=== PATIENT | male | born 1985 | race Hispanic/Latino ===

== ENCOUNTER 2017-03-20 10:08 | Inpatient (IN) | payer MEDICAID ==
[2017-03-19 10:44] VITALS: BMI 32.5
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
[2017-03-20] MEDS ORDERED: Bupivacaine 0.5% Inj(30mL) IJ ONE (11:16)
[2017-03-20] MEDS ORDERED: ceFAZolin 2 GM in Sodium Chloride 0.9% 100 ML IVPB ONE (11:16)
[2017-03-20] MEDS ORDERED: Lidocaine 4% MPF 5 ML IJ ONE (11:16)
--- NOTE | 2017-03-20 11:16 | CP.SDSHP ---
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, 5th digit bunion deformity - Previous Medical/Surgical History Pain: 4.Moderate Pain Previous Surgical History: tonsilectomy, R rotator cuff repair, R ACL repair - Allergies Allergies: Allergies No Known Allergies Allergy (Verified 03/20/17 10:29) - Physical Exam Vital Signs: Vital Signs 03/20/17 10:43 Temperature 98.5 F Pulse Rate 80 Respiratory 18 Rate Blood Pressure 144/85 O2 Sat by Pulse 95 Oximetry Mental Status: Alert & Oriented x3 Neuro: WNL Heart: WNL Lungs: WNL GI: WNL - {Optional Preform as Required} Integument: WNL Ortho: Other (pain to right midfoot lisfranc jt) - Impression Impression: Pt was seen and examined in SDS. Pt NPO status was confirmed. All Pre-op testing and clearance was in the chart. Pt has exhausted all conservative treatment at this time and is opting for surgical intervention. Pt was explained procedure and post-operative course. All pt's questions were answered to satisfaction. No guarantees were made. Pt understands all risks, benefits and complications of procedure. Pt will follow-up with Dr. Friedman Pt. Evaluated Today:Candidate for Anesthesia & Procedure: Yes - Date & Time Date: 03/20/17 Time: 11:16 Short Stay Discharge - Short Stay Discharge Admitting Diagnosis/Reason for Visit: S93.326A S72.3 Referrals: Kate Stewart MD [Primary Care Provider] - Instructions: Cephalexin (By mouth), Oxycodone/Acetaminophen (By mouth), RICE Therapy (GEN)
[2017-03-20] MEDS ORDERED: Bupivacaine 0.5% Inj(30mL) ONE (11:38)
[2017-03-20] MEDS ORDERED: MethylPREDNISolone Depo 40 mg/ml Inj ONE (11:38)
[2017-03-20] MEDS ORDERED: Lidocaine 1% Inj (20ml) ONE ×2 (11:38→11:39)
[2017-03-20] MEDS ORDERED: Propofol 10 mg/ml Inj (20 ML) ONE (12:20)
[2017-03-20] MEDS ORDERED: Succinylcholine 200 mg/10 ml Inj IV ONE (12:20)
[2017-03-20] MEDS ORDERED: Midazolam 2 MG/2 ML VIAL ONE (12:20)
[2017-03-20] MEDS ORDERED: Neostigmine Methylsulfate 2 MG/2 ML ML IV ONE (12:20)
[2017-03-20] MEDS ORDERED: Rocuronium 10 mg/ml (5 ml) ONE ×2 (12:24→14:26)
[2017-03-20] MEDS ORDERED: Lactated Ringer's 1,000 ML IV ONE (12:25)
[2017-03-20] MEDS ORDERED: Lactated Ringer's 1,000 ML IV SCH (14:04)
[2017-03-20] MEDS: HYDROmorphone 0.5 mg/0.5 ml ISec IVP PRN ×4 (15:49→16:30)
--- NOTE | 2017-03-20 15:51 | PCM.SURG1 ---
Surgeon's Initial Post Op Note - Surgeon's Notes Surgeon: Dr. Friedman Merchant Mariner: Dr. Trimble, Dr. Do, Dr. Herron, Dr. Hathaway Type of Anesthesia: General Endo, Local Anesthesia Administered By: Dr. 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 30mm x 2.5mm intergrag screw, 14mm x 3.5mm screw (x2) ; 20mm x 3.5mm screw, 22mm x 3.5mm screw. 2nd met: 24mm x 4.0mm cannulated , 15mm BME chapin x2 (3rd). 5th met: 12mm x 2.0mm screw, 10mm x 2.0mm screw Post-Operative Diagnosis: same Operation Performed: Right foot Lapidus, 2nd 3rd met cuneiform fusion, 5th met osteotomy Specimen/Specimens Removed: none Estimated Blood Loss: EBL {In ML}: 10 Blood Products Given: N/A Drains Used: No Drains Post-Op Condition: Good Date of Surgery/Procedure: 03/20/17 Time of Surgery/Procedure: 13:05
[2017-03-20] MEDS ORDERED: Oxycodone/Acetaminophen 5/325 mg Tab PO PRN ×3 (15:59→21:51)
[2017-03-20] MEDS ORDERED: Lactated Ringer's 500 ML IV ONE (16:45)
[2017-03-20] MEDS ORDERED: HYDROmorphone 0.5 mg/0.5 ml ISec IVP PRN (17:01)
--- NOTE | 2017-03-20 17:18 | RAD ---
PROCEDURE: Right Foot Radiographs. HISTORY: s/p right foot surgeyr COMPARISON: None. FINDINGS: BONES: Cast obscures bone detail. Postoperative changes of the 1st metatarsal cuneiform joint as well as of the 2nd and 3rd bases of the metatarsal are noted. Fixation screws are noted in the 5th metatarsal. JOINTS: Normal. SOFT TISSUES: Dorsal soft tissue swelling.. OTHER FINDINGS: None. IMPRESSION: Postoperative changes as discussed above.
[2017-03-20] MEDS ORDERED: Albuterol 0.042% Inhal Sol (1.25 mg/3 mL) UD INH STA (19:12)
[2017-03-20] MEDS ORDERED: Albuterol 0.083% Inhal Sol (2.5 mg/3 mL) UD INH STA ×2 (19:23→19:41)
[2017-03-20] MEDS ORDERED: Oxycodone/Acetaminophen 5/325 mg Tab PO ONE (19:56)
[2017-03-20 20:09] VITALS: RESP 20
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
[2017-03-20] MEDS: Oxycodone/Acetaminophen 5/325 mg Tab PO PRN (22:20)
[2017-03-21 00:56] VITALS: PULSE 104
[2017-03-21] MEDS: Oxycodone/Acetaminophen 5/325 mg Tab PO PRN (04:39)
[2017-03-21] MEDS ORDERED: HYDROmorphone 0.5 mg/0.5 ml ISec IVP PRN (05:58)
[2017-03-21 07:38] VITALS: BP 145/78; TEMP 98.3; O2SAT 95
--- NOTE | 2017-03-21 08:35 | CP.PCM.PN ---
Subjective - Date & Time of Evaluation Date of Evaluation: 03/21/17 Time of Evaluation: 08:33 - Subjective Subjective: 31 y/o male seen at bedside 1 day s/p left foot lisfranc repair and tailors bunion surgery by Dr. Friedman. Patient was admitted overnight due to pain and nausea after the surgery. Patient states that he had pain overnight between 4-6 am and had difficulty sleeping. Patient's right leg is elevated on 3 pillows and splint remains intact. Patient states that he has voided multiple times overnight but has not eaten anything since the surgery. Patient states his pain is more controlled now. Patient denies n/f/v/d/c/sob. Objective - Vital Signs/Intake and Output Vital Signs (last 24 hours): Temp Pulse Resp BP Pulse Ox 98.3 F 104 H 20 145/78 95 03/21/17 07:38 03/21/17 07:38 03/21/17 07:38 03/21/17 07:38 03/21/17 07:38 - Medications Medications: Current Medications Acetaminophen (Tylenol 325mg Tab) 650 mg PO Q6 PRN PRN Reason: Pain, Mild (1-3) Alprazolam (Xanax) 1 mg PO BID PRN PRN Reason: Anxiety Last Admin: 03/20/17 23:28 Dose: 1 mg Cephalexin Monohydrate (Keflex) 500 mg PO TID ROHAN Hydromorphone HCl (Dilaudid) 0.5 mg IVP Q15MIN PRN PRN Reason: Pain, moderate (4-7) Last Admin: 03/20/17 17:00 Dose: 0.5 mg Hydromorphone HCl (Dilaudid) 0.5 mg IVP Q3 PRN PRN Reason: Pain, severe (8-10) Lactated Ringer's (Lactated Ringer's) 1,000 mls @ 100 mls/hr IV .Q10H ROHAN Methocarbamol (Robaxin) 500 mg PO TID ROHAN Nortriptyline HCl (Pamelor) 10 mg PO DAILY ROHAN Ondansetron HCl (Zofran Inj) 4 mg IVP Q6 PRN PRN Reason: Nausea/Vomiting Last Admin: 03/20/17 21:35 Dose: 4 mg Oxycodone/Acetaminophen (Percocet 5/325 Mg Tab) 1 tab PO Q4 PRN PRN Reason: Pain, moderate (4-7) Stop: 03/23/17 21:52 Oxycodone/Acetaminophen (Percocet 5/325 Mg Tab) 2 tab PO Q6 PRN PRN Reason: Pain, severe (8-10) Stop: 03/23/17 22:01 Last Admin: 03/21/17 04:39 Dose: 2 tab Fluticasone/Salmeterol (Advair Diskus 250/50) 1 puff INH BID ROHAN - Constitutional Appears: Well, Non-toxic, No Acute Distress - Extremities Exam Additional comments: right leg posterior splint remains intact cft < 3 sec to all digits no calf tenderness or pain to palpation able to wiggle toes - Neurological Exam Neurological Exam: Alert, Awake, Oriented x3 - Psychiatric Exam Psychiatric exam: Normal Affect, Normal Mood Assessment and Plan - Assessment and Plan (Free Text) Assessment: 31 y/o male seen at bedside 1 day s/p left foot lapidus, 2nd, 3rd metatarsal cuneiform fusion, 5th metatarsal osteotomy Plan: patient seen and examined at bedside discussed in detail with attending Dr. Friedman labs and vitals reviewed; afebrile posterior splint remains c/d/i cont. ice, elevation to LLE cont. nonweightbearing with crutches to LLE patient stable for d/c instructed to cont with pain meds, abx patient to f/u as outpatient in [address] Friedman
[2017-03-21] MEDS ORDERED: Oxycodone/Acetaminophen 5/325 mg Tab PO STA ×2 (08:46→12:32)
[2017-03-21] MEDS ORDERED: Methocarbamol 500 MG Tab PO SCH (09:00)
[2017-03-21] MEDS ORDERED: Fluticasone-Salmeterol 250-50mcg Diskus INH SCH (09:00)
[2017-03-21] MEDS ORDERED: Enoxaparin 40 mg Syringe SC SCH (09:00)
--- NOTE | 2017-03-21 10:00 | CP.PCM.DIS ---
Provider - Provider Date of Admission: 03/20/17 20:04 Attending physician: Francnie Matamoros MD Primary care physician: Kate Stewart MD Time Spent in preparation of Discharge (in minutes): 30 Hospital Course - Hospital Course Hospital Course: 31 y/o male admitted s/p right foot lisfranc fx repair, 2nd 3rd met cuneiform fusion, 5th met osteotomy POD#1 for pain control and inability to urinate. Case d/w podiatry resident, patient cleared for d/c, voiding without difficulty. Rx for 10 days of lovenox given upon discharge, as well as keflex and percocet. Patient complaining of pain in right foot. Patient anxious at time of visit, anxious about lovenox administration. Notes his sister is and RN and she will administer medication. - Date & Time of H&P Date of H&P: 03/20/17 Time of H&P: 21:08 Discharge Exam - Head Exam Head Exam: NORMAL INSPECTION, NORMOCEPHALIC - Eye Exam Eye Exam: Normal appearance - ENT Exam ENT Exam: Mucous Membranes Moist - Respiratory Exam Respiratory Exam: NORMAL BREATHING PATTERN - Cardiovascular Exam Cardiovascular Exam: REGULAR RHYTHM - GI/Abdominal Exam GI & Abdominal Exam: Unremarkable - Extremities Exam Additional comments: RLE wrapped in bandages, clean and dry. - Neurological Exam Neurological exam: CN II-XII Intact, Oriented x3 - Psychiatric Exam Psychiatric exam: Anxious - Skin Skin Exam: Dry, Intact, Normal Color Discharge Plan - Discharge Medications Prescriptions: oxyCODONE/Acetaminophen [Percocet 5/325 mg Tab] 1 tab PO Q4 PRN #30 tab PRN Reason: Pain, Moderate (4-7) - Follow Up Plan Condition: GOOD Disposition: HOME/ ROUTINE Instructions: Cephalexin (By mouth), Oxycodone/Acetaminophen (By mouth), RICE Therapy (GEN) Additional Instructions: Instruction as per podiatry. PAtient to follow up with Dr. Friedman in 1 week. Referrals: Kate Stewart MD [Primary Care Provider] -
[2017-03-21] MEDS ORDERED: Enoxaparin 40 mg Syringe SC STA (11:29)
--- NOTE | 2017-03-27 08:28 | OP ---
PROCEDURE DATE: 03/20/2017 PREOPERATIVE DIAGNOSES: 1. Right foot Lisfranc fracture dislocation of 1, 2 and 3 metatarsal with posttraumatic arthritis. 2. Right foot 5th metatarsal bunionette. POSTOPERATIVE DIAGNOSES: 1. Right foot Lisfranc fracture dislocation of 1, 2 and 3 metatarsal with posttraumatic arthritis. 2. Right foot 5th metatarsal bunionette. NAME OF PROCEDURE: 1. Right foot Lisfranc repair with fusion of the 1st, 2nd and 3rd metatarsal cuneiform joints with internal fixation. 2. Right foot 5th metatarsal bunion osteotomy. SURGEON: Dr. Jon Friedman. [employer] FEEDER: Dr. Saad Do, PGY2 ANESTHESIA: IV sedation with local injection. INDICATIONS: This patient is a 31-year-old male with the above-mentioned diagnosis. The patient has exhausted all forms of conservative treatment at this time, wishes to have further surgical intervention for the conditions listed above. After careful explanation of risks, benefits and complications of the proposed procedure, patient signed a consent form. All questions and concerns were addressed at this time. Prior to taking patient to OR, n.p.o. status was verified and preoperative antibiotics were given. OPERATIVE PROCEDURE: The patient was brought to the operating room and placed on the table in supine position. Pneumatic ankle tourniquet was placed to the patient's right ankle in supramalleolar position. Folling inductin of general sedation the right foot and ankle was prepped and draped in the supramalleolar position and the procedure began. Procedure #1: Right foot Lisfranc repair with fusion of the 1st, 2nd and 3rd metatarsal cuneiform joints with internal fixation. At this time attention was directed to the dorsal medial aspect of the patients right foot where first utilizing intra operative C-Arm the position of the previous lis franc fracture and dislocation was noted. There was noted to be diminished joint space across the 1st, 2nd, and 3rd MT cuneiform joints with post traumatic arthritis noted throughout the joints. At this time, utilizing a #15 blade, a roughly 2 cm linear incision was made across the dorsomedial aspect of the right foot directly overlying the 1st MT cuneiform joint. At this time the incision was deepened utilizing soft and blunt dissection, making sure to retract all vital neurovascular structures and ligate all bleeders as necessary. At this point the MT cuneiform joint came into the operative field and a periosteal incision was made along the medial aspect of the joint. Utilizing a freer elevator and sharp dissection the periosteum was elevated from overlying the MT cuneiform joint. At this time, with use of intraop flouroscopy, a sagittal saw was placed within the 1st MT cuneiform joint and the joint was planed down. Following this roughly 1 mm of bone from both sides of the joint was resected. The at this time a temporary k wire was placed across the joint to hold positioning and [facility] was temporarily fixated across the medial aspect of the 1st met cuneiform joint. The plate was then fixated across the joint with 14mm x 3.5mm screw (x2) ; 20mm x 3.5mm screw, 22mm x 3.5mm screw locking screws and then an interfrag screw measuring 30mm x 2.5mm. At this time the plate positioning was verified with use of the C-Arm. The woudn was then flushed with copious amounts of saline and closed with 3-0, 4-0 vicryl and 5-0 monocryl in the normal fashion. At this time attention was then directed to the area overlying the base of the 2nd and 3rd MT cuneiform joint. Utilizing #15 blade a linear incision was made overlying this are and with sharp and blunt dissection was carried down to the level of the MT cuneiform joints without complication. All bleeders were ligated and neurovascular structures retracted. At this time attention was first directed to the 2nd MT cuneiform joint where following a periosteal incision the 2nd MT was reduced and utilizing a sagittal saw the joint was planed. There was noted to be mild gapping across the joint and so attention was then turned ot the 3rd MT cuneiform joint where once the joint was exposed a sagittal saw was passed across the joint space for planing. This allowed for adequate reduction of the 3rd MT cuneiform as well as allowed the 2nd MT to become aligned with the cuneiform. At this time a 24mm x 4.0mm cannulated screw and a 15mm BME staple was placed across the 2nd MT cuneiform joint. There was noted to be good compression across the joint at this time with good positioning verified with C - arm. At this time attention was then redirected back to the 3rd MT cuneiform joint where then a 15mm BME staple was placed. All screws and chapin were noted to be in good alignment and the operative site was flushed with copious amounts of sterile saline and closed with 3-0, 4-0 vicryl and 5-0 monorcyl in the normal fashion. Procedure # 2: Right 5th Metatarsal Jonh osteotomy. At this time attention was then directed to the dorsolateral aspect of the patients right foot where utilizing a #15 blade a roughly 3.5 cm long linear incision. The incision was then deepened to the level of the periosteum and capsule utilizing blunt and sharp dissection making sure to retract all vital neurovascular structures; all bleeders were ligated as needed. A periosteal and capsular linear incision was then made along the 5th MT to expose the 5th MT to the operative field. At this time, utilzing a sagittal saw, the lateral exostosis was removed and passed from the operative field w/o complication. Then a dorsal distal to plantar proximal through and throuhg cut was made starting from the dorsal distal aspect of the 5th MT. The [employer] fragment was then shifted medial and temporarily held in place with a bone clamp. Following standard AO technique 2 screws were placed across the 5th MT osteotomy measuring 12mm x 2.0mm screw, 10mm x 2.0mm screw. The incision was the flushed and closed with 3-, 4-0 vicryl and 5-0 monocryl in the normal fashion. Post op condition: Patient tolerated anesthesia and procedure well and was transferred to the PACU with vital signs stable and nuerovascular status intact ot the right foot. This patient will f/u in clinic as previously discussed with the patient. Saad Do DPM Brock Friedman DPM cc: [id number] TT: 03/27/2017 02:05:18 [email or web address] [email or web address]
== END 2017-03-21 15:44 | disposition home or self-care (01) | DRG 225 ==
LOC: H.OPSURG 10:08 → H.MEDSURG1 20:04 → H.OPSURG 21:07
PROVIDERS: ADMIT Family Medicine Geriatric Medicine; ATTEND Family Medicine Geriatric Medicine
PROC: 0QBN0ZZ Excision of Right Metatarsal, Open Approach (ICD-10-PCS; 2017-03-20)
PROC: 0SGK04Z Fusion of Right Tarsometatarsal Joint with Internal Fixation Device, Open Approach (ICD-10-PCS; principal; 2017-03-20 12:00)
DX: S93.324A Dislocation of tarsometatarsal joint of right foot, initial encounter (principal); F41.9 Anxiety disorder, unspecified; X58.XXXA Exposure to other specified factors, initial encounter; Y93.9 Activity, unspecified; Y92.9 Unspecified place or not applicable; Y99.9 Unspecified external cause status; M21.621 Bunionette of right foot; M20.61 Acquired deformities of toe(s), unspecified, right foot; M19.171 Post-traumatic osteoarthritis, right ankle and foot; J45.20 Mild intermittent asthma, uncomplicated

== ENCOUNTER 2017-05-04 15:00 | Emergency (ER) | payer MEDICAID ==
[2017-05-04 15:00] VITALS: BMI 32.5
[2017-05-04 15:07] VITALS: BP 138/71; PULSE 83; RESP 17; TEMP 98.1; O2SAT 98
--- NOTE | 2017-05-04 15:34 | ED PDOC ---
Lower Extremity Pain/Injury Time Seen by Provider: 05/04/17 15:32 Chief Complaint (Nursing): Lower Extremity Problem/Injury Chief Complaint (Provider): foot injury History Per: Patient (31 y/o male here for evaluation of foot discomfort. Has had lisfranc/bunion repair 02/2017 with subsequent cast placement. Patient is due for cast removal 12 days. States he slipped and fell on right side yesterday. Was sent by podiatry for evaluation.) Past Medical History Reviewed: Historical Data, Nursing Documentation, Vital Signs Vital Signs: Last Vital Signs Temp 98.1 F 05/04/17 15:03 Pulse 83 05/04/17 15:03 Resp 17 05/04/17 15:03 BP 138/71 05/04/17 15:03 Pulse Ox 98 05/04/17 15:03 - Medical History PMH: Anxiety, Asthma, Depression, Fractures Denies: Chronic Kidney Disease - Surgical History Surgical History: Tonsillectomy - Family History Family History: States: No Known Family Hx - Immunization History Hx Tetanus Toxoid Vaccination: Yes - Home Medications Home Medications: Ambulatory Orders Medication Instructions Recorded ALPRAZolam [Xanax] 1 mg PO BID PRN 03/20/17 Cephalexin [Keflex] 500 mg PO TID 03/20/17 Fluticasone/Salmeterol [Advair 1 mcg INH BID 03/20/17 250-50 Diskus] Methocarbamol [Robaxin] 500 mg PO TID 03/20/17 Nortriptyline [Pamelor] 10 mg PO DAILY 03/20/17 Voltarenxr 100 mg PO DAILY 03/20/17 oxyCODONE/Acetaminophen [Percocet 5 - 325 mg PO Q4 PRN 03/20/17 5/325 mg Tab] traMADol [Ultram] 50 mg PO TID 03/20/17 oxyCODONE/Acetaminophen [Percocet 1 tab PO Q4 PRN #30 tab 03/21/17 5/325 mg Tab] Naproxen [Naprosyn Tab] 375 mg PO Q8 PRN #15 tab 05/04/17 - Allergies Allergies/Adverse Reactions: Allergies Allergy/AdvReac Type Severity Reaction Status Date / Time No Known Allergies Allergy Verified 05/04/17 15:03 Review of Systems ROS Statement: Except As Marked, All Systems Reviewed And Found Negative Physical Exam - Reviewed Nursing Documentation Reviewed: Yes Vital Signs Reviewed: Yes - Physical Exam Appears: Positive for: Well, Non-toxic, No Acute Distress Head Exam: Positive for: ATRAUMATIC, NORMAL INSPECTION, NORMOCEPHALIC Skin: Positive for: Normal Color, Warm, DRY Eye Exam: Positive for: EOMI, Normal appearance, PERRL ENT: Positive for: Normal ENT Inspection Neck: Positive for: Normal, Painless ROM Cardiovascular/Chest: Positive for: Regular Rate, Rhythm Respiratory: Positive for: CNT, Normal Breath Sounds Gastrointestinal/Abdominal: Positive for: Normal Exam, Bowel Sounds, Soft Back: Positive for: Normal Inspection Extremity: Positive for: Normal ROM Neurologic/Psych: Positive for: Alert, Oriented - ECG O2 Sat by Pulse Oximetry: 98 - Progress ED Course And Treament: Podiatry resident has seen patient. Xry foot reviewed by her. Patient to f/u as scheduled. Disposition - Clinical Impression Clinical Impression: Foot pain - Patient ED Disposition Is Patient to be Admitted: No - Disposition Disposition: Routine/Home Disposition Time: 16:45 Condition: FAIR Prescriptions: Naproxen [Naprosyn Tab] 375 mg PO Q8 PRN #15 tab PRN Reason: Pain, Severe (8-10) Instructions: Foot Fracture in Adults (ED)
--- NOTE | 2017-05-04 16:02 | CP.PCM.CON ---
History of Present Illness - History of Present Illness History of Present Illness: This is a 31 yo male patient who presents to ED today with right foot pain. Of note, pt is 6 weeks s/p lisoskar and micheal deformity repair (DOS 03/20/17) with Dr. Friedman. Pt last seen in podiatry clinic this past week. Pt states that he slipped and fell on a wet floor at a restaurant yesterday, says he is concerned because he says he put some weight to the right foot and hit the side of the foot on the floor. Denies any other injuries from this fall. Says he has been completely NWB to the right foot and using the rolling walker. Says he iced the foot last night and today and took Motrin for pain. Does admit to some slight pain to the toes today and top of foot. Denies any numbness or tingling. Denies any other problems at this time. Review of Systems - Review of Systems Review of Systems: as per HPI Past Patient History - Tetanus Immunizations Tetanus Immunization: Unknown - Past Medical History & Family History Past Medical History?: Yes - Past Social History Smoking Status: Former Smoker - CARDIAC Hx Cardiac Disorders: No - PULMONARY Hx Asthma: Yes - NEUROLOGICAL Hx Neurological Disorder: Yes Other/Comment: HX OF FAINTING DURING THE DROW THE BLOOD AT TIME X1 - HEENT Hx HEENT Problems: No - RENAL Hx Chronic Kidney Disease: No - ENDOCRINE/METABOLIC Hx Endocrine Disorders: No - HEMATOLOGICAL/ONCOLOGICAL Hx Blood Disorders: No - INTEGUMENTARY Hx Dermatological Problems: No - MUSCULOSKELETAL/RHEUMATOLOGICAL Hx Fractures: Yes - GASTROINTESTINAL Hx Gastrointestinal Disorders: No - GENITOURINARY/GYNECOLOGICAL Hx Genitourinary Disorders: No - PSYCHIATRIC Hx Anxiety: Yes Hx Depression: Yes - SURGICAL HISTORY Hx Tonsillectomy: Yes - ANESTHESIA Hx Anesthesia: Yes Hx Anesthesia Reactions: No Hx Malignant Hyperthermia: No Meds Home Medications: Home Medication List Medication Instructions Recorded Confirmed Type Naproxen [Naprosyn Tab] 375 mg PO Q8 PRN #15 tab 05/04/17 Rx Allergies/Adverse Reactions: Allergies Allergy/AdvReac Type Severity Reaction Status Date / Time No Known Allergies Allergy Verified 05/04/17 15:03 Physical Exam - Constitutional Appears: Non-toxic, No Acute Distress - Extremities Exam Additional comments: Right low ext exam: Below knee cast appears c/d/i, pt able to wiggle all toes freely, cap refill < 3 sec to all digits, no ecchymosis noted to digits - Neurological Exam Neurological exam: Alert, CN II-XII Intact, Oriented x3 - Psychiatric Exam Psychiatric exam: Normal Affect, Normal Mood Results - Vital Signs Recent Vital Signs: Last Vital Signs Temp 98.1 F 05/04/17 15:03 Pulse 83 05/04/17 15:03 Resp 17 05/04/17 15:03 BP 138/71 05/04/17 15:03 Pulse Ox 98 05/04/17 15:34 Assessment & Plan - Assessment and Plan (Free Text) Assessment: 31 yo male patient 6 weeks s/p right foot lisfranc injury repair and bunionette surgery w/ pain to foot 2/2 fall Plan: Pt S&E at bedside Plan discussed with attending Dr. Friedman in detail Right foot x-rays reviewed: surgical hardware appears to be intact and in good alignment, no evidence acute fx's or dislocation Discussed findings with patient and advised pt to remain strictly NWB to right low ext. Pt is to take oral NSAIDS for pain, RICE therapy Pt is to f/u at [facility] podiatry clinic has appt 05/15/17
--- NOTE | 2017-05-04 16:06 | RAD ---
PROCEDURE: Right Foot Radiographs. HISTORY: 6 weeks s/p foot sx, recent fall COMPARISON: Right foot radiographs performed 05/01/17, 04/03/17, 03/20/17, and 02/25/17 FINDINGS: Images are obtained through a cast which obscures osseous detail. Oblique lucency/irregularity about the 5th metatarsal presumably related to recent surgical status. Postsurgical changes appear grossly stable without significant interval change appreciated. No evidence of dislocation. IMPRESSION: Oblique lucency/irregularity about the 5th metatarsal presumably related to recent surgical status. Correlate clinically. Otherwise, no significant interval change appreciated.
== END 2017-05-04 16:59 | disposition home or self-care (01) ==
LOC: H.ER 15:00
DX: M79.671 Pain in right foot (principal); F32.9 Major depressive disorder, single episode, unspecified; F41.9 Anxiety disorder, unspecified

== ENCOUNTER 2017-10-22 21:45 | Emergency (ER) | payer OTHER ==
[2017-10-22 21:45] VITALS: BMI 32.5
[2017-10-22 21:54] VITALS: BP 136/94; PULSE 74; RESP 16; TEMP 96; O2SAT 97
--- NOTE | 2017-10-22 23:03 | ED PDOC ---
Lower Extremity Pain/Injury Time Seen by Provider: 10/22/17 22:44 Chief Complaint (Nursing): Lower Extremity Problem/Injury Chief Complaint (Provider): foot injury History Per: Patient History/Exam Limitations: no limitations Additional Complaint(s): 32yo M in ED for eval of ongoing pain to right foot after lisfranc surgical and bunion repair.Pt was seen at [facility] last week was told he will need to f.u with podiatry moving forward. Pt states he now developed swelling to the right foot without acute injury. admits pain is severe.Pt believes he has chronic regional pain syndrome. Past Medical History Reviewed: Historical Data, Nursing Documentation, Vital Signs Vital Signs: Last Vital Signs Temp 96 F L 10/22/17 21:50 Pulse 74 10/22/17 21:50 Resp 16 10/22/17 21:50 BP 136/94 H 10/22/17 21:50 Pulse Ox 97 10/22/17 21:50 - Medical History PMH: Anxiety, Asthma, Depression, Fractures Denies: Chronic Kidney Disease - Surgical History Surgical History: Tonsillectomy - Family History Family History: States: No Known Family Hx - Immunization History Hx Tetanus Toxoid Vaccination: Yes - Home Medications Home Medications: Ambulatory Orders Medication Instructions Recorded ALPRAZolam [Xanax] 1 mg PO BID PRN 03/20/17 Cephalexin [Keflex] 500 mg PO TID 03/20/17 Fluticasone/Salmeterol [Advair 1 mcg INH BID 03/20/17 250-50 Diskus] Methocarbamol [Robaxin] 500 mg PO TID 03/20/17 Nortriptyline [Pamelor] 10 mg PO DAILY 03/20/17 Voltarenxr 100 mg PO DAILY 03/20/17 oxyCODONE/Acetaminophen [Percocet 5 - 325 mg PO Q4 PRN 03/20/17 5/325 mg Tab] traMADol [Ultram] 50 mg PO TID 03/20/17 oxyCODONE/Acetaminophen [Percocet 1 tab PO Q4 PRN #30 tab 03/21/17 5/325 mg Tab] Naproxen [Naprosyn Tab] 375 mg PO Q8 PRN #15 tab 05/04/17 - Allergies Allergies/Adverse Reactions: Allergies Allergy/AdvReac Type Severity Reaction Status Date / Time No Known Allergies Allergy Verified 05/04/17 15:03 Review of Systems ROS Statement: Except As Marked, All Systems Reviewed And Found Negative Constitutional: Negative for: Fever, Chills Musculoskeletal: Positive for: Foot Pain (right foot: dorsum with mild swelling no discoloration. FROM neurovasc intact. ) Physical Exam - Reviewed Nursing Documentation Reviewed: Yes Vital Signs Reviewed: Yes - Physical Exam Appears: Positive for: Well, Non-toxic, No Acute Distress Skin: Positive for: Normal Color, Warm, DRY Extremity: Positive for: Other (right foot: swelling mild noted to dorsum of foot. FROM nuerovasc intact. ) Neurologic/Psych: Positive for: Alert, Oriented - ECG O2 Sat by Pulse Oximetry: 97 Medical Decision Making Medical Decision Making: contacted podiatry, suggest pt f.u in clinic for further eval. however pt is very animate about getting further imagining. PT strongly believes something is wrong with his foot and is demanding a CT of foot states he will not leave ER unless he receives a ct scan . Disposition - Disposition Forms: [employer] ([place])
--- NOTE | 2017-10-23 00:14 | CT ---
EXAM: CT Right Lower Extremity Without Intravenous Contrast, Foot CLINICAL HISTORY: 32 years old, male; Pain; Foot; Right; Prior surgery; Surgery date: 6+ months; Surgery type: Foot surgery; Additional info: Severe foot pain with swelling and HX of lisfranc TECHNIQUE: Axial computed tomography images of the right foot without intravenous contrast. All CT scans at this facility use one or more dose reduction techniques, viz.: automated exposure control; ma/kV adjustment per patient size (including targeted exams where dose is matched to indication; i.e. head); or iterative reconstruction technique. Coronal and sagittal reformatted images were created and reviewed. COMPARISON: CR - FOOT RIGHT 3 VIEWS ROUTINE 2017-10-22 23:11 FINDINGS: Limitations: Lack of intravenous contrast. Bones/joints: No acute fracture. Plate and screw fixation of first, second, third tarsometatarsal joints; fifth metatarsal. No dislocation. No definite cortical destruction. Soft tissues: [id number] soft tissue swelling along dorsum of midfoot, lateral forefoot. IMPRESSION: 1. Soft tissue swelling, nonspecific. 2. If there is clinical concern for osteomyelitis, suggest three phase bone scan/WBC scan or MRI.
--- NOTE | 2017-10-23 00:22 | ED PDOC ---
- ECG O2 Sat by Pulse Oximetry: 97 Medical Decision Making Medical Decision Making: Pending CT. CT shows some swelling, dorsal foot. Disposition - Clinical Impression Clinical Impression: Foot pain - POA Present On Arrival: None - Disposition Disposition: Routine/Home Disposition Time: 00:21 Condition: GOOD Prescriptions: Ibuprofen [Motrin Tab] 800 mg PO Q6H PRN #20 tab PRN Reason: Pain Instructions: Swollen Joint (ED), Arthralgia (ED) Forms: [employer] (Chinese)
--- NOTE | 2017-10-23 09:07 | RAD ---
PROCEDURE: Right Foot Radiographs. HISTORY: foot injury COMPARISON: 08/07/2017 FINDINGS: BONES: Normal. No fractureNo interval fracture or interval hardware failure suggested 1st 2nd 3rd tarsal metatarsal hardware -compatible with prior Lisfranc injury treatment -renoted 2 screws transfix a old 5th metatarsal shaft fracture -no change here. . JOINTS: Normal. SOFT TISSUES: Normal. OTHER FINDINGS: None. IMPRESSION: Similar postop changes. No interval hardware failure or interval new fractures suggested
== END 2017-10-23 00:35 | disposition home or self-care (01) ==
LOC: H.ER 21:45
DX: M79.671 Pain in right foot (principal); Z86.59 Personal history of other mental and behavioral disorders; Z98.890 Other specified postprocedural states

== ENCOUNTER 2017-12-04 10:18 | Day surgery (SDC) | payer OTHER ==
[2017-12-04] MEDS ORDERED: Lactated Ringer's 1,000 ML IV ONE ×3 (12:00→17:00)
[2017-12-04] MEDS ORDERED: Bupivacaine 0.5% Inj(30mL) ONE (12:23)
[2017-12-04] MEDS ORDERED: Lidocaine 1% Inj (20ml) ONE (12:23)
--- NOTE | 2017-12-04 12:42 | CP.PCM.PN ---
Subjective - Date & Time of Evaluation Date of Evaluation: 12/04/17 Time of Evaluation: 12:39 - Subjective Subjective: 32 year old male seen in [facility] preoperatively for removal of hardware and fusion of right third tarso-metatarsal joint right foot. Patient states that he is very anxious and took two Xanax last night to calm his nerves. He states he has been NPO since before midnight. Denies any further pedal complaints. Is AAO x 3 at time of examination. Denies any recent N/V/F/C/CP/SOB/D/posterior calf pain when squeezed. Objective - Vital Signs/Intake and Output Vital Signs (last 24 hours): Temp Pulse Resp BP Pulse Ox 97.9 F 82 20 132/88 96 12/04/17 10:50 12/04/17 11:18 12/04/17 10:50 12/04/17 10:50 12/04/17 10:50 - Constitutional Appears: Well, Non-toxic, No Acute Distress - Extremities Exam Additional comments: LE focused exam: Vasc: DP/PT pulses fully palpable 2/4 b/l. Skin temperature warm to warm from proximal to distal. CFT < 3 seconds to all digits b/l. No edema noted b/l Neuro: Epicritic and protective sensation grossly intact b/l Derm: Cicatrix noted from previous ORIF of right foot. Otherwise no open lesions , wounds maceration, xerosis, abnormal pigmentation or abnormal growths notred b /l MSK: Pain with ROM of midtarsal joint, right foot - Neurological Exam Neurological Exam: Alert, Awake, Oriented x3 - Psychiatric Exam Psychiatric exam: Normal Affect, Normal Mood Assessment and Plan - Assessment and Plan (Free Text) Assessment: 32 year old male seen in [facility] preoperatively for removal of hardware and fusion of right third tarso-metatarsal joint right foot
[2017-12-04] MEDS ORDERED: ceFAZolin 1 GM in Sodium Chloride 0.9% 100 ML IVPB ONE (12:43)
[2017-12-04] MEDS ORDERED: Lidocaine 1% Inj (20ml) IJ ONE (12:43)
[2017-12-04] MEDS ORDERED: Bupivacaine 0.5% 50 ML IJ ONE ×3 (12:43→15:46)
[2017-12-04] MEDS ORDERED: Sodium Chloride 0.9% 1,000 ML IV SCH (12:45)
--- NOTE | 2017-12-04 12:48 | CP.SDSHP ---
Same Day Surgery H & P - History Proposed Procedure: Removal of hardware and fusion of third tarsometatarsal joint right foot Pre-Op Diagnosis: Painful, broken hardware of right foot - Previous Medical/Surgical History Pain: 6.Severe Pain - Allergies Allergies: Allergies No Known Allergies Allergy (Verified 05/04/17 15:03) - Physical Exam Vital Signs: Vital Signs 12/04/17 12/04/17 10:50 11:18 Temperature 97.9 F Pulse Rate 82 82 Respiratory 20 Rate Blood Pressure 132/88 O2 Sat by Pulse 96 Oximetry Mental Status: Alert & Oriented x3 - {Optional Preform as Required} Integument: WNL Ortho: Other (painful hardware right foot) - Impression Pt. Evaluated Today:Candidate for Anesthesia & Procedure: Yes - Date & Time Date: 12/04/17 Time: 12:48 Short Stay Discharge - Short Stay Discharge Admitting Diagnosis/Reason for Visit: M19.172 Disposition: HOME/ ROUTINE Referrals: Kate Stewart MD [Primary Care Provider] -
[2017-12-04] MEDS ORDERED: Propofol 10 mg/ml Inj (20 ML) ONE ×2 (13:11→15:46)
[2017-12-04] MEDS ORDERED: Midazolam 2 MG/2 ML VIAL ONE ×2 (13:12→13:25)
[2017-12-04] MEDS ORDERED: Succinylcholine 200 mg/10 ml Inj IV ONE (13:14)
[2017-12-04] MEDS ORDERED: Ropivacaine 0.5% 30ML IV ONE (13:27)
[2017-12-04] MEDS ORDERED: Midazolam 2 MG/2 ML VIAL IVP PRN (16:09)
[2017-12-04] MEDS ORDERED: Lactated Ringer's 1,000 ML IV SCH (16:15)
--- NOTE | 2017-12-04 16:25 | PCM.SURG1 ---
Surgeon's Initial Post Op Note - Surgeon's Notes Surgeon: Dr. Jon Friedman, DPM Spout Tender: Clint Johnston PGY3, Libia Richard PGY2 Type of Anesthesia: General LMA, Local Anesthesia Administered By: Dr. 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 M- plates and screws. I- 10 cc 0.5% marcaine plain Post-Operative Diagnosis: Same Operation Performed: Removal of painful hardware right foot. Fusion of third tarsometatarsal joints right foot Specimen/Specimens Removed: Bone right foot Estimated Blood Loss: EBL {In ML}: 5 Blood Products Given: N/A Drains Used: No Drains Post-Op Condition: Good Date of Surgery/Procedure: 12/04/17 Time of Surgery/Procedure: 16:26
[2017-12-04] MEDS ORDERED: Oxycodone/Acetaminophen 5/325 mg Tab PO PRN ×2 (16:27)
--- NOTE | 2017-12-04 17:02 | PCM.ANESB2 ---
Popliteal Nerve Block - Popliteal Nerve Block Date of Procedure: 12/04/17 Anesthesiologist: Trever Pre-Procedure Diagnosis: Right foot painful hardware Post-Procedure Diagnosis: Same Procedure Performed: Popliteal Nerve Block Right - Procedure Popliteal Nerve Block: This procedure was explained to the patient that it is for post-operative pain management. Consent was obtained after a thorough discussion with the patient regarding the benefits and possible complications of local anesthetic block of the sciatic nerve at the popliteal level. The patient was brought to the operating room and standard monitors are applied. Time-out was held with the circulating nurse to confirm the correct surgery and the appropriate block. After applying oxygen by nasal cannula and administering IV Sedation, patient's operative leg was gently raised and supported and the groove in between the biceps femoris and vastus lateralis muscles was carefully palpated. The skin approximately 8cm above the popliteal crease was then marked. The ultrasound transducer was then applied to the posterior thigh approximately 8cm above the popliteal crease in the transverse plane and the sciatic nerve before its division was visualized lateral to the popliteal artery and in between the bicep femoris and semimembranosus/semitendinosus muscles. After identification, the lateral portion of the thigh was prepped with Betadine solution three times and Lidocaine 1% was injected subcutaneously for topical anesthesia. At this point, a # 21 gauge Stimuplex insulated 4 inch needle was inserted into pre-marked area and advanced in a perpendicular direction. The needle was inserted above the ultrasound transducer in-plane towards the sciatic nerve in a [id number] direction. Needle advancement was performed carefully under direct ultrasound visualization. Nerve stimulator was used and dorsiflexion of the __right___ foot was elicited at a current of ___0.4__ MA. After repeated negative aspiration, __20___cc of __.5___ % ____ropivacaine was injected. Under ultrasound guidance the local anesthetics were observed surrounding sciatic nerve . The needle was removed intact and sterile dressing was applied. The patient tolerated the popliteal nerve block well with stable vital signs and was subsequently prepared for the surgery.
[2017-12-04 17:16] VITALS: RESP 18
[2017-12-04 19:44] VITALS: BP 124/65; PULSE 97; TEMP 98.4; O2SAT 96
--- NOTE | 2017-12-05 12:43 | RAD ---
PROCEDURE: Right Foot Radiographs. HISTORY: s/p right foot surgery COMPARISON: 05/04/2017- 10/22/2017 FINDINGS: BONES: Status post removal of hardware from the 5th metatarsal and 1st metatarsal. Partially fenestrated screw removed from the base of the 2nd metatarsal. No evidence of orthopedic hardware failure. JOINTS: Expected degenerative/postoperative changes. SOFT TISSUES: Normal. OTHER FINDINGS: None. IMPRESSION: Satisfactory postoperative status. Limitations of the current study: Detail obscured by overlying fiberglass cast.
--- NOTE | 2017-12-06 05:24 | OP ---
PROCEDURE DATE: 12/04/2017 PREOPERATIVE DIAGNOSES: 1. Right foot painful hardware. 2. 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 POSTOPERATIVE DIAGNOSES: 1. Right foot painful hardware. 2. 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 PROCEDURES: 1. Right foot removal of painful hardware. 2. Right foot surgical repair of nonunion of third tarsometatarsal joint with the use of internal fixation. SURGEON: Jon Friedman DPM ASSISTANTS: Libia Richard DPM, PGY-2 and Clint Johnston DPM, PGY-3. TYPE OF ANESTHESIA: General LMA. SUPERVISOR YARD: Joe Perera MD INDICATIONS: The patient is a 32-year-old male with the above-mentioned diagnoses. The patient has exhausted all conservative treatments at this time and now requests surgical intervention. The patient signed the consent after careful explanation of risks, benefits, complications, and alternatives for surgical procedure. No guarantees were given or implied. DESCRIPTION OF PROCEDURE: The patient was brought into the operating room and placed on the operating room table in a supine position. A time-out was performed for identification of the correct patient and procedure. Once general anesthesia was achieved, the right foot was then prepped and draped in normal sterile manner. The patient's right leg was then elevated and the pneumatic thigh tourniquet was then inflated to 350 mmHg and the procedure began. PROCEDURE #1: Right foot removal of painful hardware. Attention was directed to the dorsal aspect of the right first metatarsocuneiform joint where a 4-cm linear longitudinal incision was made overlying the scar where a previous incision was placed. The incision was then carried down to the subcutaneous tissue with care being been taken to identify and retract all vital and neurovascular structures. All bleeders were cauterized and ligated as necessary. Next, the periosteal incision was then made overlying the first metatarsocuneiform joint and with the freer elevator the periosteal suture was then reflected medially and laterally, thus exposing the plate and the screws under visualization. With the use of the screwdriver, the screws and the Lapidus plate were then carefully removed and passed off of the operative field. The incision site was copiously irrigated with sterile normal saline and the subcutaneous tissue was then re-approximated with 3-0 and 4-0 Vicryl and the subcuticular tissue was then re-approximated with 4-0 Monocryl. Next, attention was directed to the dorsal lateral aspect of the fifth metatarsal head and neck where a 3-cm linear longitudinal incision was placed overlying a scar from a previous surgical incision. The dissection was then carried down through subcutaneous tissues with care being taken to identify and retract all vital and neurovascular structures. All bleeders were cauterized and ligated as necessary. Next, a periosteal incision was then made overlying the fifth metatarsal neck and chest and with the freer elevator the periosteal tissue was then reflected medially and laterally, thus exposing the screws under direct visualization. With the use of screwdriver, the screws were then carefully removed and passed off of the operative field. The incision site was then copiously irrigated with sterile normal saline. The subcutaneous tissue was then re-approximated with 3-0 and 4-0 Vicryl and the subcuticular tissue was then re-approximated with 4-0 Monocryl. Next, attention was directed to the dorsal aspect of the midfoot of the right foot where a 4-cm linear longitudinal incision was made overlying the second and third tarsometatarsal joint. The dissection was then carried down through subcutaneous tissue with care being taken to identify and retract all vital and neurovascular structures. All bleeders were cauterized and ligated as necessary. Next, the periosteal incision was then made overlying the second and third tarsometatarsal joint and with the freer elevator, the periosteal tissue was then reflected medially and laterally, thus exposing the staple and screws under direct visualization across the second tarsometatarsal joint and the staple was directly exposed across the third tarsometatarsal joint. The screw and the staple was then excised from the second tarsometatarsal joint and passed off of the operative field and then the staple from the third tarsometatarsal joint was then carefully excised and passed off of the operative field. Upon removal of the staple from the third tarsometatarsal joint, there was evidence of significant motion of this joint indicating a nonunion had occurred across the joint. PROCEDURE #2: Right foot surgical repair of nonunion of the third tarsometatarsal joint with the use of internal fixation. As I was mentioned previously after removal of the staple from the third tarsometatarsal joint, there was motion of this joint signifying nonunion. Using an osteotome, the fracture site was then resected with the use of a 0.045-inch K-wire the base of the third metatarsal and the head of the lateral cuneiform were then subchondrally and the distal aspect of the lateral cuneiform were then subchondrally drilled to stimulate bleeding. Next, 0.5 mL of demineralized bone matrix was then placed across the fracture site. After careful reduction and compression of the fracture site, a Synthes 2.7-mm LCP L-plate was placed across the third tarsometatarsal joint. A 2.7 x 20 mm screw was placed into the plate and two 2.7 x 24 mm screws were then placed into the plate. Excellent compression was noted across the fusion site at this time. The site was then copiously irrigated with sterile normal saline. The periosteal and capsular structures were then re-approximated with 3-0 Vicryl and the subcutaneous tissue was re-approximated with 4-0 Vicryl and the subcuticular tissue was then re-approximated with 4-0 Monocryl. A postoperative injection of 10 mL of 0.5% Marcaine plain was given in a local block type fashion to the right foot. Postoperative dressing included Steri-Strips, wet-to-dry, 4x4 gauze, Kerlix, Stockinette, Webril, and fiberglass cast was applied to the right lower extremity. POSTOPERATIVE CONDITION: The patient tolerated the anesthesia and the procedure well and was escorted to the recovery room with vital signs stable and neurovascular status intact to the right foot. Libia Richard DPM Jon Friedman DPM EBEN
== END 2017-12-04 19:50 | disposition home or self-care (01) ==
LOC: H.OPSURG 10:18
PROVIDERS: ATTEND Podiatrist
DX: T84.84XA Pain due to internal orthopedic prosthetic devices, implants and grafts, initial encounter (principal); M19.172 Post-traumatic osteoarthritis, left ankle and foot; J45.909 Unspecified asthma, uncomplicated; F41.8 Other specified anxiety disorders; Y83.1 Surgical operation with implant of artificial internal device as the cause of abnormal reaction of the patient, or of later complication, without mention of misadventure at the time of the procedure
CPT/HCPCS: 20680; 28322; 73630; 88304; C1713; C1769; J0330; J0690; J1170; J2001; J2250; J2704; J3010; J7030; J7120